=== PATIENT | female | born 1970 | race Caucasian/White ===

== ENCOUNTER 2017-06-06 17:57 | Inpatient (IN) ==
[2017-06-06] MEDS ORDERED: 0.9 % SODIUM CHLORIDE 1,000 ML IV ONE (18:17)
[2017-06-06] MEDS ORDERED: KETOROLAC 15 MG/ML VIAL IV ONE (18:26)
[2017-06-06] MEDS ORDERED: ONDANSETRON 4 MG/2 ML VIAL IV ONE (18:28)
--- NOTE | 2017-06-06 18:29 | Emergency Department Note ---
Abdominal Pain HPI - General Chief Complaint: Abdominal Pain Stated Complaint: right low abd pain, "ache all over" Time Seen by Provider: 06/06/17 18:01 Source: patient Mode of arrival: ambulatory Limitations: no limitations - History of Present Illness HPI Narrative: 46-year-old female presents with right-sided abdominal pain. She states earlier today she had some mid back pain and went to the chiropractor. She states that pain is a lot better. After she got out of the chiropractor she started having right-sided abdominal pain that was 8 out of 10. She has a history of kidney stones and has had a lithotripsy previously. She states she is also gassy and belches and feels better. She denies nausea or vomiting. 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 She denies any urinary frequency. She has a uterine fibroid that causes her trouble when she is on her cycle but she is not right now. She has had a cholecystectomy in the past. - Related Data Home Medications Medication Instructions Recorded Confirmed Multi Vit 1 tab PO DAILY 01/16/15 06/06/17 Allergies Allergy/AdvReac Type Severity Reaction Status Date / Time No Known Drug Allergies Allergy Verified 05/10/16 11:35 Review of Systems All systems ED: reviewed and negative except as stated. Abdominal Pain PMH - Past Medical History Medical history: Reports: kidney stones, other (Uterine fibroid) Surgical history ED: Reports: cholecystectomy Psychiatric history: Reports: no psych history [employer] history: Reports: uterine fibroids Family history: Reports: no significant family history - Social History Smoking status: Never smoker Physical Exam Limitations: no limitations General appearance: alert, other (Uncomfortable) Head: atraumatic Eye: Present: normal appearance. Absent: conjunctival injection Neck: Present: normal inspection, full ROM Chest: Present: normal inspection, symmetric chest wall rise Respiratory: Present: normal lung sounds bilaterally Cardiovascular: Present: tachycardia, normal heart sounds Abdominal: Present: soft, tenderness, normal bowel sounds. Absent: distention, rigidity, psoas sign, heel tap sign Abdominal tenderness: Present: RLQ, severe (Between the right lower and upper quadrant.). Absent: epigastrium, suprapubic Extremities: Present: normal inspection, full ROM Back: Present: CVA tenderness (R). Absent: CVA tenderness (L) Neurological: Present: alert, oriented X3 Psychiatric: Present: anxious Skin: Present: warm, dry, intact Course Vital Signs Temperature 98.7 F 06/06/17 17:59 Pulse Rate 109 H 06/06/17 17:59 Respiratory Rate 20 06/06/17 17:59 Blood Pressure 135/57 06/06/17 17:59 Pulse Oximetry (%) 99 06/06/17 17:59 Temperature 98.7 F 06/06/17 17:59 Pulse Rate 95 H 06/06/17 18:57 Respiratory Rate 20 06/06/17 17:59 Blood Pressure 126/71 06/06/17 18:57 Pulse Oximetry (%) 99 06/06/17 18:57 Abdominal Pain - MDM Narrative Medical decision making narrative: Appendicitis on CT scan. She also has an abnormality in her kidney that should be further evaluated by renal ultrasound outpatient. There is no evidence of obstructing kidney stones or hydronephrosis. Her appendix is large at 16 mm. Her white count is elevated at 18. She has been afebrile. Pain is controlled with 0.5 of Dilaudid. She will be admitted by Dr. Pastor and she will have surgery tomorrow. - Lab Data Lab results reviewed: Yes I reviewed the patient's lab results. Result diagrams: 06/06/17 18:20 06/06/17 18:20 Lab Results 06/06/17 06/06/17 06/06/17 Range/Units 18:20 18:20 18:20 WBC 18.5 H (4.5-11.0) K/mcL RBC 4.94 (4.00-5.20) M/mcL Hgb 14.3 (12.0-15.0) g/dL Hct 42.1 (36.0-48.0) % MCV 85.2 (80.0-100.0) fL MCH 28.9 (26.0-34.0) pg MCHC 33.9 (31.0-36.0) g/dL RDW 13.2 (11.5-14.5) % Plt Count 319 (140-440) K/mcL MPV 7.9 (7.4-10.4) fL Total Counted 100 Seg Neutrophils % 85 H (38-78) % Band Neutrophils % 1 (0-10) % Lymphocytes % 9 L (15-49) % Monocytes % (Manual) 5 (1-12) % Platelet Estimate Normal (NORMAL) RBC Morphology Normal (NORMAL) VBG Lactic Acid (0.5-2.2) mmol/L Sodium 136 (133-145) mmol/L Potassium 3.4 (3.3-5.1) mmol/L Chloride 99 (96-108) mmol/L Carbon Dioxide 23 (22-30) mmol/L Anion Gap 14.0 (8-16) BUN 10 (6-20) mg/dl Creatinine 0.6 (0.6-1.1) mg/dl GFR Calculation 111 Glucose 117 H (70-105) mg/dL Calcium 9.3 (8.6-10.4) mg/dl Total Bilirubin 0.6 (0.0-1.0) mg/dL AST 18 (0-37) U/l ALT 22 (0-40) U/l Alkaline Phosphatase 55 (39-117) U/L Total Protein 7.5 (5.9-8.4) gm/dL Albumin 4.2 (3.2-5.2) gm/dL Globulin 3.3 (2.2-3.7) gm/dL Albumin/Globulin Ratio 1.3 (1.0-2.3) Urine Color Straw Urine Appearance Hazy Urine pH 8.0 (5.0-9.0) Ur Specific [place] 1.011 (1.000-1.035) Urine Protein Neg (NEG) mg/dL Urine Glucose (UA) Negative (NEG) mg/dL Urine Ketones Neg (NEG) mg/dL Urine Occult Blood 0.03 A (<0.03) mg/dL Urine Nitrate Neg (NEG) Urine Bilirubin Neg (NEG) mg/dL Urine Urobilinogen Neg (NEG) mg/dL Ur Leukocyte Esterase Neg (NEG) /uL Urine RBC 1 (0-1) /hpf Urine WBC 2 (0-4) /hpf Ur Squamous Epith Cells < 1 (0-4) /hpf Urine Bacteria 0 (0) /hpf Urine Mucus Few (0) /hpf Ur Culture Indicated? No 06/06/17 Range/Units 18:20 WBC (4.5-11.0) K/mcL RBC (4.00-5.20) M/mcL Hgb (12.0-15.0) g/dL Hct (36.0-48.0) % MCV (80.0-100.0) fL MCH (26.0-34.0) pg MCHC (31.0-36.0) g/dL RDW (11.5-14.5) % Plt Count (140-440) K/mcL MPV (7.4-10.4) fL Total Counted Seg Neutrophils % (38-78) % Band Neutrophils % (0-10) % Lymphocytes % (15-49) % Monocytes % (Manual) (1-12) % Platelet Estimate (NORMAL) RBC Morphology (NORMAL) VBG Lactic Acid 1.4 (0.5-2.2) mmol/L Sodium (133-145) mmol/L Potassium (3.3-5.1) mmol/L Chloride (96-108) mmol/L Carbon Dioxide (22-30) mmol/L Anion Gap (8-16) BUN (6-20) mg/dl Creatinine (0.6-1.1) mg/dl GFR Calculation Glucose (70-105) mg/dL Calcium (8.6-10.4) mg/dl Total Bilirubin (0.0-1.0) mg/dL AST (0-37) U/l ALT (0-40) U/l Alkaline Phosphatase (39-117) U/L Total Protein (5.9-8.4) gm/dL Albumin (3.2-5.2) gm/dL Globulin (2.2-3.7) gm/dL Albumin/Globulin Ratio (1.0-2.3) Urine Color Urine Appearance Urine pH (5.0-9.0) Ur Specific [place] (1.000-1.035) Urine Protein (NEG) mg/dL Urine Glucose (UA) (NEG) mg/dL Urine Ketones (NEG) mg/dL Urine Occult Blood (<0.03) mg/dL Urine Nitrate (NEG) Urine Bilirubin (NEG) mg/dL Urine Urobilinogen (NEG) mg/dL Ur Leukocyte Esterase (NEG) /uL Urine RBC (0-1) /hpf Urine WBC (0-4) /hpf Ur Squamous Epith Cells (0-4) /hpf Urine Bacteria (0) /hpf Urine Mucus (0) /hpf Ur Culture Indicated? - Radiology Data Radiology results reviewed: Yes I reviewed the patient's radiology results. 1. Enlarged appendix with minimal periappendiceal inflammatory change. Appearance is consistent with a really, nonruptured appendicitis 2. Multiple nonobstructing renal calculi. Left renal mass is not excluded. Renal ultrasound or contrast-enhanced CT scan recommended. Disposition Pt seen by SAUS[facility] WRAPPER/PA only: Yes Clinical Impression: Acute appendicitis Disposition: Xfer As Outpt/Obs ([facility]) Condition: Fair Referrals: Noah Armas PA-C [Primary Care Provider] -
[2017-06-06] MEDS: HYDROmorphone 2 MG/ML SYRINGE IV PRN ×2 (18:50→21:45)
[2017-06-06 18:58] LABS: Mean Cell Volume 85.2 fL (80.0-100.0); Mean Corpuscular HGB Conc 33.9 g/dL (31.0-36.0); Mean Corpuscular Hemoglobin 28.9 pg (26.0-34.0); Platelet Count 319 K/mcL (140-440); RBC 4.94 M/mcL (4.00-5.20); Red Cell Distribution Width 13.2 % (11.5-14.5)
[2017-06-06 19:07] LABS: Appearance,Urine HAZY; Bacteria,Urine 0 /hpf (0); Bilirubin,Urine NEG (NEG); Color,Urine STRAW; Glucose,Urine (UA) NEGATIVE (NEG); Leukocyte Esterase,Urine NEG /uL (NEG); Mucus,Urine FEW /hpf (0); Nitrate,Urine NEG (NEG); Protein,Urine NEG (NEG); Specific Gravity,Urine 1.011 (1.000-1.035); Urine Blood 0.03 mg/dL (<0.03); Urine RBC 1 /hpf (0-1); Urine Squamous Epithelial Cell < 1 /hpf (0-4); Urine WBC 2 /hpf (0-4); Urobilinogen,Urine NEG (NEG)
[2017-06-06 19:15] LABS: ALT/SGPT 22 U/l (0-40); Albumin 4.2 gm/dL (3.2-5.2); Albumin/Globulin Ratio 1.3 (1.0-2.3); Alkaline Phosphatase 55 U/L (39-117); Blood Urea Nitrogen 10 mg/dl (6-20)
[2017-06-06 19:22] LABS: Band Neutrophils % 1 % (0-10); Lymphocytes % 9 % (15-49); Monocytes % (Manual) 5 % (1-12); Platelet Estimate NORMAL (NORMAL); RBC Morphology NORMAL (NORMAL); Segmented Neutrophils % 85 % (38-78)
--- NOTE | 2017-06-06 19:24 | Cat Scan Report ---
CLINICAL INFORMATION: Abdominal pain. Elevated white blood cell,. History of renal calculi. COMPARISON: None. TECHNIQUE: Axial images were obtained through the abdomen and pelvis. Sagittally and coronally reformatted images. FINDINGS: Appendix is enlarged. Appendix measures 16 mm in cross-sectional diameter. The appendix is short but cross-sectional diameter is abnormal and consistent with appendicitis. There is mild periappendiceal inflammatory change especially at the base. There is no appendicolith. No abscess. No free fluid. No evidence for ruptured appendix. Kidneys are abnormal. There are multiple small nonobstructing calculi. No hydronephrosis. No hydroureter. No bladder calculus. I cannot exclude an anterior mid pole left renal mass. Further evaluation is recommended. Renal ultrasound would be helpful or contrast enhanced CT scan. Lung bases are negative. No parenchymal infiltrate or mass. No pleural fluid. Liver is negative to limits of noncontrast enhanced examination. There are surgical clips in the gallbladder fossa. No dilated bile ducts. Spleen is negative. No splenomegaly. Pancreas is negative. Adrenal glands are negative. Lumbar spine, sacrum, pelvis are negative. Uterus is present. No adnexal mass. No free pelvic fluid. IMPRESSION: 1. Enlarged appendix with minimal periappendiceal inflammatory change. Appearance is consistent with a really, nonruptured appendicitis 2. Multiple nonobstructing renal calculi. Left renal mass is not excluded. Renal ultrasound or contrast-enhanced CT scan recommended. Interpreted and Authenticated by: Lucho Leyva 06/06/17
[2017-06-06] MEDS ORDERED: PIPERACILLIN SODIUM/TAZOBACTAM 3.375 GM in DEXTROSE 5% IN WATER 50 ML IV ONE (19:28)
--- NOTE | 2017-06-06 19:36 | Emergency Department Note ---
ED Note Addendum Note Addendum: I examined this patient and agree with the assessment and plan with the mid- level that she has appendicitis and the surgeon will be called.
[2017-06-06] MEDS ORDERED: ONDANSETRON 4 MG/2 ML VIAL IV PRN (19:51)
--- NOTE | 2017-06-06 20:15 | XRay Report ---
INDICATION: Appendicitis. Preoperative evaluation TECHNIQUE: AP chest x-ray,semiupright portable COMPARISON: None FINDINGS:Lungs are negative. No parenchymal infiltrate or mass. Heart size and vascularity are normal. No pulmonary edema. No pulmonary congestion. No pleural fluid. IMPRESSION: Negative AP chest x-ray Interpreted and Authenticated by: Lucho Leyva 06/06/17
[2017-06-06] MEDS: 0.9 % SODIUM CHLORIDE 1,000 ML IV SCH (21:00)
[2017-06-06] MEDS ORDERED: HYDROmorphone 2 MG/ML SYRINGE ONE (21:45)
[2017-06-06] MEDS: 0.9 % SODIUM CHLORIDE 10 ML SYRINGE IV SCH (21:46)
[2017-06-06] MEDS: FAMOTIDINE/PF 20 MG/2 ML VIAL IV SCH (22:44)
[2017-06-07] MEDS: PIPERACILLIN SODIUM/TAZOBACTAM 3.375 GM in DEXTROSE 5% IN WATER 50 ML IV SCH ×4 (01:00→17:45)
[2017-06-07 05:42] LABS: Mean Corpuscular HGB Conc 33.8 g/dL (31.0-36.0); Mean Corpuscular Hemoglobin 29.1 pg (26.0-34.0); Platelet Count 229 K/mcL (140-440); RBC 4.07 M/mcL (4.00-5.20); Red Cell Distribution Width 13.1 % (11.5-14.5)
[2017-06-07 05:57] LABS: ALT/SGPT 18 U/l (0-40); Albumin 3.4 gm/dL (3.2-5.2); Albumin/Globulin Ratio 1.5 (1.0-2.3); Alkaline Phosphatase 45 U/L (39-117); Bilirubin,Direct < 0.2 mg/dL (0.0-0.3); Blood Urea Nitrogen 10 mg/dl (6-20); Gamma Glutamyl Transpeptidase 16 U/L (5-36); Magnesium 1.8 mg/dL (1.6-2.5); Uric Acid 2.3 mg/dL (2.5-8.0)
[2017-06-07] MEDS: 0.9 % SODIUM CHLORIDE 1,000 ML IV SCH ×4 (05:59→22:31)
[2017-06-07] MEDS: 0.9 % SODIUM CHLORIDE 10 ML SYRINGE IV SCH ×3 (06:44→22:31)
[2017-06-07 07:09] LABS: Eosinophils % (Manual) 1 % (0-7); Lymphocytes % 7 % (15-49); Monocytes % (Manual) 11 % (1-12); Platelet Estimate NORMAL (NORMAL); RBC Morphology NORMAL (NORMAL); Segmented Neutrophils % 81 % (38-78)
--- NOTE | 2017-06-07 08:25 | General Surg History&Physical ---
History of Present Illness Patient information: Note initiated : 06/07/17 at 8:22 am Service Date, if different from initiated Date: [] Patient: Lashawn Greenwood a 46 y/o F admitted on for right low abd pain, "ache all over". Chief Complaint: [] HPI: Ms. Greenwood is a 46 year old F admitted with acute appendicitis. The patient had onset of mid back pain 10:30 AM on the day of admission. She was seen by chiropractor and had manipulation but the pain became worse and later localized to her right lower quadrant. She had nausea but no vomiting. The pain increased throughout the day and she felt like was seen in the emergency room where it was noted that she had right lower quadrant tenderness with guarding; an 18,000 white count; and CT scan showing a 16 mm dilated appendix with periappendiceal tissue edema compatible with appendicitis. She is admitted and will have surgery as soon as possible. Review of Systems - Constitutional no fever(s), no malaise, no weight loss - EENT Nose, mouth and throat: no abnormal hearing, no dysphagia, no hoarseness, no throat swelling - Cardiovascular no chest pain at rest, no claudication, no dyspnea on exertion, no palpatations - Respiratory no dyspnea, no wheezing - Gastrointestinal abdominal pain, bloating, cramping, nausea, no vomiting - Genitourinary Genitourinary: no dysuria, no nocturia, no urinary frequency, no urinary hesitancy - Musculoskeletal back pain, no arthralgias, no joint swelling, no stiffness - Integumentary no bleeding lesions, no new lesions, no pruritus, no rash - Neurological no abnormal gait, no confusion, no dizziness, no paresthesias, no weakness - Psychiatric no anxiety, no confusion, no depression - Endocrine no fatigue, no heat intolerance, no palpitations - Hematologic/Lymphatic no easy bleeding, no easy bruising, no lymphadenopathy - Allergic/Immunologic no tongue swelling, no throat swelling, no uticaria, no wheezing, no lip swelling Past History Past medical history: No chronic medical conditions Past surgical history: LEEP Cholecystectomy Endometrial ablation Past family history: Carcinoma of the colon Diabetes mellitus in multiple members Hypertension in multiple members Coronary artery disease in multiple members Past social history: Employed Neck no tobacco use Note alcohol use No drug use Medications and Allergies Home Medications Medication Instructions Recorded Confirmed Type Multi Vit 1 tab PO DAILY 01/16/15 06/06/17 History Allergies Allergy/AdvReac Type Severity Reaction Status Date / Time No Known Drug Allergies Allergy Verified 05/10/16 11:35 Exam Temp Pulse Resp BP Pulse Ox 97.5 F 80 16 119/73 98 06/07/17 06:20 06/07/17 04:00 06/07/17 06:20 06/07/17 06:20 06/07/17 06:20 - General physical appearance well developed, well nourished, no distress - Eyes PERRL, normal ocular movement - ENT normal pinna, normal nares, normal mucosa, no hearing loss, no congestion - Head Head exam IM: Present: atraumatic, normal inspection, normocephalic - Neck no masses, no bruits, trachea midline, no lymphadectomy, no venous distension - Cardiovascular Cardiovascular exam IM: Present: normal rate and rhythm, RRR, +S1, +S2. Absent : gallop, JVD, systolic murmur - Respiratory normal expansion, normal respiratory effort, clear to percussion, clear to auscultation - Abdomen Abdomen: Present: soft, tender (Mild distention with tenderness and guarding in the right lower quadrant with positive rebound; good active bowel sounds), bowel sounds Hernia: Present: none - Rectum Rectum: Present: normal sphincter tone - Integumentary Present: no rash, no growths, no abnormal pigmentation - Neurologic Present: normal coordination, normal sensation - Musculoskeletal Present: normal gait, normal posture - Psychiatric Present: oriented to time, oriented to person, oriented to place, speech is normal, memory intact Assessment and Plan (1) Acute appendicitis Patient counseled for laparoscopic appendectomy and it will be done later today Status: Acute
[2017-06-07] MEDS: FAMOTIDINE/PF 20 MG/2 ML VIAL IV SCH ×2 (09:09→22:30)
[2017-06-07] MEDS: HYDROmorphone 2 MG/ML SYRINGE IV PRN ×9 (09:16→22:29)
[2017-06-07] MEDS ORDERED: GLYCOPYRROLATE 0.2 MG/ML VIAL IV ONE (10:20)
[2017-06-07] MEDS ORDERED: PROPOFOL 200 MG/20 ML VIAL IV ONE (10:20)
[2017-06-07] MEDS ORDERED: LIDOCAINE HCL/PF 100 MG/5 ML SYRINGE IV ONE (10:20)
[2017-06-07] MEDS ORDERED: NEOSTIGMINE 1 MG/ML VIAL IV ONE (10:20)
[2017-06-07] MEDS ORDERED: KETAMINE 100 MG/ML ML IV ONE (10:20)
[2017-06-07] MEDS ORDERED: ONDANSETRON 4 MG/2 ML VIAL IV ONE (10:20)
[2017-06-07] MEDS ORDERED: ROCURONIUM 10 MG/ML ML IV ONE (10:20)
[2017-06-07] MEDS ORDERED: MIDAZOLAM 2 MG/2 ML VIAL IV ONE (10:20)
[2017-06-07] MEDS ORDERED: fentaNYL 100 MCG/2 ML VIAL IV ONE (10:20)
[2017-06-07] MEDS ORDERED: ONDANSETRON 4 MG/2 ML VIAL IV PRN ×3 (11:19→16:08)
[2017-06-07] MEDS ORDERED: MEPERIDINE 50 MG/ML SYRINGE IM PRN (11:19)
[2017-06-07] MEDS ORDERED: PROMETHAZINE 25 MG/ML VIAL IV PRN ×2 (11:19→16:10)
[2017-06-07] MEDS ORDERED: METOPROLOL TARTRATE 5 MG/5 ML VIAL IV PRN (11:19)
[2017-06-07] MEDS ORDERED: PROMETHAZINE 25 MG/ML VIAL IM PRN (11:19)
[2017-06-07] MEDS ORDERED: BENZOCAINE/MENTHOL 1 LOZENGE PO PRN (11:19)
[2017-06-07] MEDS ORDERED: IPRATROPIUM/ALBUTEROL 3 ML AMPUL.NEB NEB PRN (11:19)
[2017-06-07] MEDS ORDERED: LACTATED RINGERS 1,000 ML IV SCH (11:30)
--- NOTE | 2017-06-07 11:43 | Brief Operative Note ---
Date of procedure: 06/07/17 Pre-op diagnosis: ACUTE APPENDICITIS Post-op diagnosis: other (CECAL MASS WITH APPENDICEAL INFLAMMATION) Procedure: PARTIAL CECECTOMY WITH APPENDECTOMY Grafts/Implants: No (DEIRDRE X1) Anesthesia: GETA Findings: LARGE FIRM SWELLING OF DISTAL CECUM WITH APPENDICEAL INFLAMMATION Complications: none Surgeon: Sudhakar Pastor Estimated blood loss (cc): 25 Specimens Removed/Pathology: other (APPENDIX WITH DISTAL CECUM) Condition: stable Disposition: PACU
[2017-06-07] MEDS: MEPERIDINE 25 MG/ML SYRINGE IV PRN ×2 (12:10→12:15)
[2017-06-07] MEDS: fentaNYL 100 MCG/2 ML VIAL IV PRN ×2 (12:13→12:30)
--- NOTE | 2017-06-07 14:46 | Operative Note ---
DATE OF OPERATION: 06/07/2017 PREOPERATIVE DIAGNOSIS: Acute appendicitis. POSTOPERATIVE DIAGNOSIS: Cecal mass with appendiceal inflammation. PROCEDURE: Partial cecectomy with appendectomy. SURGEON: Sudhakar Pastor M.D. FINDINGS: A large firm swelling of distal cecum with appendiceal inflammation. DESCRIPTION: Under general anesthesia, the patient's abdomen was prepped and draped in a sterile field. Supraumbilical midline incision was made. Veress needle was inserted uneventfully. Abdominal cavity was insufflated with 2.1 liters of CO2. A 12 mm port was placed. The laparoscope was placed. Under videoscopic guidance, a 5 mm port was placed in the suprapubic midline and a 12 mm port in the left lower quadrant. The patient was placed in deep Trendelenburg position and rotated to the left. At the base of the cecum, there was a very thickened and inflamed but foreshortened appendix which was more bulbously dilated. This was contiguous with a thickened mass-like structure at the base of the cecum. The cecum was mobilized along its lateral attachments until I could get good visualization circumferentially. It was decided that I could remove the cecal mass and appendix using the Endo MEMO stapler. It did not appear to be malignant, but if it was, it was decided that she could have a followup operation if needed. The mesoappendix was transected with the Endo MEMO stapler. The cecum posterior wall was dissected until I could get full view of the cecum and the junction with the terminal ileum. Staying a few centimeters below the ileocecal valve, the cecum was transected at an angle which progressed progressively cephalad. Four fires of the Endo MEMO stapler was carried out. The appendix and the mass were then placed in an EndoCatch device and were retrieved through the left lower quadrant port site. Irrigation was carried out. Inspection in the pelvis revealed an enlarged uterus with multiple nodular fibroids and another large mass off the side of the uterus on the left side. This mass appeared to be contiguous with the lateral wall of the uterus, but it also extended through the broad ligament and pressed against the ovary. It did not appear to be ovarian in origin. Multiple pictures were taken. Copious irrigation was carried out. A 10-flat Wade drain was placed at the base of the cecum and brought out through the suprapubic midline port site. Inspection did not reveal any other pathology. CO2 was allowed to escape from the abdomen, and the ports were removed. The fascia at the left lower quadrant port site was closed with multiple [id number] sutures of 0 Monocryl. The supraumbilical midline incision was closed with interrupted 0 Vicryl. Skin incisions were closed with opal. The drain was secured with 2-0 nylon. Dressings were placed. The patient tolerated the procedure well. She was awakened from anesthesia, transferred to a bed and taken to the postanesthetic care unit in stable, satisfactory condition. LCS:misty Job ID: [id number] Doc ID: [id number] Sudhakar Pastor M.D.
[2017-06-07 16:31] LABS: ALT/SGPT 20 U/l (0-40); Albumin 3.5 gm/dL (3.2-5.2); Albumin/Globulin Ratio 1.4 (1.0-2.3); Alkaline Phosphatase 45 U/L (39-117); Bilirubin,Direct < 0.2 mg/dL (0.0-0.3); Blood Urea Nitrogen 7 mg/dl (6-20); Gamma Glutamyl Transpeptidase 15 U/L (5-36); Magnesium 1.6 mg/dL (1.6-2.5); Uric Acid 1.9 mg/dL (2.5-8.0)
[2017-06-07] MEDS ORDERED: POTASSIUM PHOSPHATE 40 MEQ in DEXTROSE 5% IN WATER 500 ML IV ONE (21:00)
[2017-06-07] MEDS ORDERED: POTASSIUM PHOSPHATE 22 MEQ/5 ML VIAL IV ONE (22:18)
[2017-06-08] MEDS: HYDROmorphone 2 MG/ML SYRINGE IV PRN ×3 (01:41→15:56)
[2017-06-08] MEDS: PIPERACILLIN SODIUM/TAZOBACTAM 3.375 GM in DEXTROSE 5% IN WATER 50 ML IV SCH ×5 (02:37→17:52)
[2017-06-08] MEDS ORDERED: POTASSIUM PHOSPHATE 40 MEQ in DEXTROSE 5% IN WATER 500 ML IV ONE (03:00)
[2017-06-08] MEDS ORDERED: POTASSIUM PHOSPHATE 22 MEQ/5 ML VIAL IV ONE (03:31)
[2017-06-08] MEDS: 0.9 % SODIUM CHLORIDE 1,000 ML IV SCH ×3 (05:38→15:29)
[2017-06-08] MEDS: 0.9 % SODIUM CHLORIDE 10 ML SYRINGE IV SCH ×3 (06:00→20:49)
[2017-06-08 07:13] LABS: Band Neutrophils % 3 % (0-10); Basophils % (Manual) 1 % (0-2); Lymphocytes % 19 % (15-49); Monocytes % (Manual) 10 % (1-12); Platelet Estimate NORMAL (NORMAL); RBC Morphology ABNORM (NORMAL); Segmented Neutrophils % 67 % (38-78)
[2017-06-08 07:14] LABS: Mean Cell Volume 84.9 fL (80.0-100.0); Mean Corpuscular Hemoglobin 28.9 pg (26.0-34.0); Platelet Count 226 K/mcL (140-440); Red Cell Distribution Width 13.6 % (11.5-14.5)
[2017-06-08] MEDS: FAMOTIDINE/PF 20 MG/2 ML VIAL IV SCH ×2 (08:51→20:49)
--- NOTE | 2017-06-08 13:57 | General Surgery Progress Note ---
Subjective Patient reports: feels better, pain is less, voiding w/o difficulty, no flatus, no bowel movement, nausea, afebrile Narrative: Note initiated : 06/08/17 at 1:55 pm Service Date, if different from initiated Date: [] Patient: Lashawn Greenwood 46 y/o F admitted on 06/07/17 for right low abd pain , "ache all over". Chief Complaint: [Patient is stable. She had some significant nausea and abdominal pain in the early postoperative period but that has resolved. She has some shoulder and back pain which was probably related to the pneumoperitoneum. That too has resolved. She is ambulating without difficulty and complains of hunger. The reason for delaying institution of oral feedings was explained to the patient and her . She is advised that she may be able to have clear liquids starting tomorrow.] Objective Temp Pulse Resp BP Pulse Ox 99 F 78 18 127/87 95 06/08/17 11:36 06/08/17 11:36 06/08/17 11:36 06/08/17 11:36 06/08/17 11:36 - Additional Data Intake & Output - Last 24 hours: Intake & Output 06/06/17 06/07/17 06/08/17 06/09/17 05:59 05:59 05:59 05:59 Intake Total 2049 2682 / 2682 Output Total 3150 / 3150 1490 / 1490 Balance 2049 -468 / -468 -1490 / -1490 Weight 171 lb 8 oz 173 lb 173 lb - General physical appearance well developed, well nourished, moderate distress - Respiratory normal expansion, normal respiratory effort, clear to percussion, clear to auscultation - Cardiovascular Cardiovascular exam: Present: normal rate and rhythm, RRR, +S1, +S2 - Abdomen soft, tender, bowel sounds (Abdomen is mildly distended with good active bowel sounds; her incision looks good; DEIRDRE drainage is serosanguineous) - Integumentary no rash, no growths, no abnormal pigmentation - Neurologic normal coordination, normal sensation - Musculoskeletal normal gait, normal posture - Psychiatric oriented to time, oriented to person, oriented to place, speech is normal, memory intact - Labs 06/08/17 05:05 06/07/17 13:46 Diabetes panel 06/07/17 Range/Units 13:46 Sodium 136 (133-145) mmol/L Potassium 3.3 (3.3-5.1) mmol/L Chloride 102 (96-108) mmol/L Carbon Dioxide 22 (22-30) mmol/L BUN 7 (6-20) mg/dl Creatinine 0.5 L (0.6-1.1) mg/dl Glucose 135 H (70-105) mg/dL Calcium 7.7 L (8.6-10.4) mg/dl AST 15 (0-37) U/l ALT 20 (0-40) U/l Alkaline Phosphatase 45 (39-117) U/L Total Protein 6.0 (5.9-8.4) gm/dL Albumin 3.5 (3.2-5.2) gm/dL Triglycerides 42 (<150) mg/dl Calcium panel 06/07/17 Range/Units 13:46 Calcium 7.7 L (8.6-10.4) mg/dl Phosphorus 2.0 L (2.7-4.5) mg/dL Albumin 3.5 (3.2-5.2) gm/dL Pituitary panel 06/07/17 Range/Units 13:46 Sodium 136 (133-145) mmol/L Potassium 3.3 (3.3-5.1) mmol/L Chloride 102 (96-108) mmol/L Carbon Dioxide 22 (22-30) mmol/L BUN 7 (6-20) mg/dl Creatinine 0.5 L (0.6-1.1) mg/dl Glucose 135 H (70-105) mg/dL Calcium 7.7 L (8.6-10.4) mg/dl Adrenal panel 06/07/17 Range/Units 13:46 Sodium 136 (133-145) mmol/L Potassium 3.3 (3.3-5.1) mmol/L Chloride 102 (96-108) mmol/L Carbon Dioxide 22 (22-30) mmol/L BUN 7 (6-20) mg/dl Creatinine 0.5 L (0.6-1.1) mg/dl Glucose 135 H (70-105) mg/dL Calcium 7.7 L (8.6-10.4) mg/dl Total Bilirubin 0.4 (0.0-1.0) mg/dL AST 15 (0-37) U/l ALT 20 (0-40) U/l Alkaline Phosphatase 45 (39-117) U/L Total Protein 6.0 (5.9-8.4) gm/dL Albumin 3.5 (3.2-5.2) gm/dL Assessment and Plan (1) Acute appendicitis Status: Acute Current Visit: Yes (2) Mass of cecum Status: Acute Assessment and plan: Patient is stable. Will probably advance diet tomorrow. Current Visit: Yes - Time Spent With Patient Total time spent is greater than 50% in coordination of care (as documented) at patient's floor/unit and/or counseling patient:
[2017-06-08] MEDS: POTASSIUM PHOSPHATE 40 MEQ in DEXTROSE 5% IN WATER 500 ML IV SCH ×2 (15:55→20:49)
[2017-06-08] MEDS: METOCLOPRAMIDE 10 MG/2 ML VIAL IV SCH (17:52)
[2017-06-09] MEDS: PIPERACILLIN SODIUM/TAZOBACTAM 3.375 GM in DEXTROSE 5% IN WATER 50 ML IV SCH ×4 (00:26→17:41)
[2017-06-09] MEDS: METOCLOPRAMIDE 10 MG/2 ML VIAL IV SCH ×4 (00:26→17:41)
[2017-06-09] MEDS: 0.9 % SODIUM CHLORIDE 1,000 ML IV SCH ×2 (01:21→03:48)
[2017-06-09] MEDS: 0.9 % SODIUM CHLORIDE 10 ML SYRINGE IV SCH ×3 (05:51→20:30)
[2017-06-09 05:56] LABS: ALT/SGPT 15 U/l (0-40); Albumin 3.4 gm/dL (3.2-5.2); Albumin/Globulin Ratio 1.2 (1.0-2.3); Alkaline Phosphatase 44 U/L (39-117); Bilirubin,Direct < 0.2 mg/dL (0.0-0.3); Blood Urea Nitrogen 2 mg/dl (6-20); Gamma Glutamyl Transpeptidase 17 U/L (5-36); Magnesium 1.8 mg/dL (1.6-2.5); Uric Acid 1.8 mg/dL (2.5-8.0)
[2017-06-09 06:49] LABS: Basophils # (Auto) 0 K/mcL (0.0-0.3); Basophils % (Auto) 0.3 % (0.0-2.0); Eosinophils # (Auto) 0.3 K/mcL (0.0-0.7); Eosinophils % (Auto) 3.5 % (0.0-7.0); Granulocytes % (Auto) 62.8 % (38.0-78.0); Lymphocytes # (Auto) 1.9 K/mcL (1.5-4.8); Lymphocytes % (Auto) 23.3 % (15.5-49.0); Mean Cell Volume 85.4 fL (80.0-100.0); Mean Corpuscular HGB Conc 34.1 g/dL (31.0-36.0); Mean Corpuscular Hemoglobin 29.1 pg (26.0-34.0); Monocytes # (Auto) 0.8 K/mcL (0.1-0.9); Monocytes % (Auto) 10.1 % (1.0-12.0); Platelet Count 265 K/mcL (140-440); RBC 4.12 M/mcL (4.00-5.20); Red Cell Distribution Width 13.3 % (11.5-14.5)
[2017-06-09] MEDS: FAMOTIDINE/PF 20 MG/2 ML VIAL IV SCH ×2 (08:56→20:29)
[2017-06-09] MEDS ORDERED: FLU VACC QS2017-18 36MOS UP/PF 60 MCG/0.5 ML SYRINGE IM ONE (10:00)
--- NOTE | 2017-06-09 13:48 | General Surgery Progress Note ---
Subjective Patient reports: feels better, pain is less, flatus, bowel movement, afebrile Narrative: Note initiated : 06/09/17 at 1:45 pm Service Date, if different from initiated Date: [] Patient: Lashawn Greenwood 46 y/o F admitted on 06/07/17 for right low abd pain , "ache all over". Chief Complaint: [Patient is doing well. She has had multiple bowel movements and has passed lots of flatus. Her abdominal discomfort is significantly improved. She complains of hunger. She denies shortness of breath or chest discomfort. DEIRDRE drainage is more serous than on yesterday.] Objective Temp Pulse Resp BP Pulse Ox 97.5 F 83 16 133/77 99 06/09/17 11:52 06/09/17 11:52 06/09/17 11:52 06/09/17 11:52 06/09/17 11:48 - Additional Data Intake & Output - Last 24 hours: Intake & Output 06/07/17 06/08/17 06/09/17 06/10/17 05:59 05:59 05:59 05:59 Intake Total 2049 3191.0909 / 3191.0909 1777.1818 / 1777.1818 50 / 50 Output Total 3150 / 3150 4750 / 4750 1909 Balance 2049 41.0909 / 41.0909 -2972.8182 / -2972.8182 -1860 / -1860 Weight 171 lb 8 oz 173 lb 172 lb 12.8 oz - General physical appearance well developed, well nourished, no distress - Eyes PERRL - ENT no congestion - Neck no venous distension - Respiratory normal expansion, normal respiratory effort, clear to auscultation - Cardiovascular Cardiovascular exam: Present: normal rate and rhythm, RRR, +S1, +S2. Absent: JVD - Abdomen soft, tender, bowel sounds (Abdomen is mildly distended with active bowel sounds ; port sites are unremarkable; DEIRDRE drain with serosanguineous drainage) - Integumentary no rash, no growths, no abnormal pigmentation - Neurologic normal coordination, normal sensation - Musculoskeletal normal gait, normal posture - Psychiatric oriented to time, oriented to person, oriented to place, speech is normal, memory intact - Labs 06/09/17 04:45 06/09/17 04:45 Diabetes panel 06/09/17 Range/Units 04:45 Sodium 139 (133-145) mmol/L Potassium 3.6 (3.3-5.1) mmol/L Chloride 102 (96-108) mmol/L Carbon Dioxide 25 (22-30) mmol/L BUN 2 L (6-20) mg/dl Creatinine 0.5 L (0.6-1.1) mg/dl Glucose 111 H (70-105) mg/dL Calcium 8.4 L (8.6-10.4) mg/dl AST 13 (0-37) U/l ALT 15 (0-40) U/l Alkaline Phosphatase 44 (39-117) U/L Total Protein 6.2 (5.9-8.4) gm/dL Albumin 3.4 (3.2-5.2) gm/dL Triglycerides 110 (<150) mg/dl Calcium panel 06/09/17 Range/Units 04:45 Calcium 8.4 L (8.6-10.4) mg/dl Phosphorus 3.0 (2.7-4.5) mg/dL Albumin 3.4 (3.2-5.2) gm/dL Pituitary panel 06/09/17 Range/Units 04:45 Sodium 139 (133-145) mmol/L Potassium 3.6 (3.3-5.1) mmol/L Chloride 102 (96-108) mmol/L Carbon Dioxide 25 (22-30) mmol/L BUN 2 L (6-20) mg/dl Creatinine 0.5 L (0.6-1.1) mg/dl Glucose 111 H (70-105) mg/dL Calcium 8.4 L (8.6-10.4) mg/dl Adrenal panel 06/09/17 Range/Units 04:45 Sodium 139 (133-145) mmol/L Potassium 3.6 (3.3-5.1) mmol/L Chloride 102 (96-108) mmol/L Carbon Dioxide 25 (22-30) mmol/L BUN 2 L (6-20) mg/dl Creatinine 0.5 L (0.6-1.1) mg/dl Glucose 111 H (70-105) mg/dL Calcium 8.4 L (8.6-10.4) mg/dl Total Bilirubin 0.5 (0.0-1.0) mg/dL AST 13 (0-37) U/l ALT 15 (0-40) U/l Alkaline Phosphatase 44 (39-117) U/L Total Protein 6.2 (5.9-8.4) gm/dL Albumin 3.4 (3.2-5.2) gm/dL Assessment and Plan (1) Acute appendicitis Status: Acute Current Visit: Yes (2) Mass of cecum Status: Acute Assessment and plan: Patient is stable. Start on GI soft diet Saline lock IV Probable discharge in the morning Current Visit: Yes - Time Spent With Patient Total time spent is greater than 50% in coordination of care (as documented) at patient's floor/unit and/or counseling patient:
[2017-06-10] MEDS: PIPERACILLIN SODIUM/TAZOBACTAM 3.375 GM in DEXTROSE 5% IN WATER 50 ML IV SCH ×3 (01:20→12:23)
[2017-06-10] MEDS: METOCLOPRAMIDE 10 MG/2 ML VIAL IV SCH ×3 (02:05→11:24)
[2017-06-10 05:34] LABS: Basophils # (Auto) 0 K/mcL (0.0-0.3); Basophils % (Auto) 0.3 % (0.0-2.0); Eosinophils # (Auto) 0.4 K/mcL (0.0-0.7); Eosinophils % (Auto) 4.6 % (0.0-7.0); Lymphocytes # (Auto) 1.9 K/mcL (1.5-4.8); Lymphocytes % (Auto) 23.6 % (15.5-49.0); Mean Cell Volume 85.7 fL (80.0-100.0); Mean Corpuscular Hemoglobin 29.1 pg (26.0-34.0); Monocytes # (Auto) 0.8 K/mcL (0.1-0.9); Monocytes % (Auto) 9.5 % (1.0-12.0); Platelet Count 336 K/mcL (140-440); RBC 4.43 M/mcL (4.00-5.20)
[2017-06-10 05:49] LABS: ALT/SGPT 18 U/l (0-40); Albumin 3.4 gm/dL (3.2-5.2); Albumin/Globulin Ratio 1.1 (1.0-2.3); Alkaline Phosphatase 47 U/L (39-117); Bilirubin,Direct < 0.2 mg/dL (0.0-0.3); Blood Urea Nitrogen 4 mg/dl (6-20); Gamma Glutamyl Transpeptidase 26 U/L (5-36); Magnesium 1.8 mg/dL (1.6-2.5); Uric Acid 2.9 mg/dL (2.5-8.0)
[2017-06-10] MEDS: 0.9 % SODIUM CHLORIDE 10 ML SYRINGE IV SCH ×2 (07:45→12:24)
[2017-06-10] MEDS: FAMOTIDINE/PF 20 MG/2 ML VIAL IV SCH (08:19)
--- NOTE | 2017-06-10 13:38 | Discharge Summary ---
Providers - Providers Patient information: Note initiated : 06/10/17 at 1:34 pm Service Date, if different from initiated Date: [] Patient: Lashawn Greenwood 46 y/o F admitted on 06/07/17 for Right Low Abd Pain , "Ache all Over"/Appendicitis. Chief Complaint: [] Date of admission: 06/06/17 Discharge date: 06/10/17 Attending physician: Sudhakar Pastor Hospitalization Hospital course: 46-year-old female who was admitted with signs and symptoms of appendicitis on the evening of 06 June. She had a tender right lower quadrant; elevated white blood count over 18,000; and CT evidence of an inflamed thickened indurated appendix with elmira-. Appendiceal tissue edema she had laparoscopy on 07 June and it showed a thickened edematous appendix but with a mass effect in the cecum above the appendiceal opening causing obstruction. She underwent partial C colectomy and appendectomy laparoscopically. She has done well in the postoperative period.. Her white blood count has returned to normal. She has been advanced to a soft diet without difficulty and she is having multiple bowel movements. Murphy-Thorne drain which is at the base of the residual cecum has serosanguineous fluid. She is stable and ready for discharge home Discharge diagnosis: Cecal mass Secondary discharge diagnosis: Appendicitis due to cecal mass Reason for admission: Right lower quadrant pain Procedures: Laparoscopy with partial cecectomy and appendectomy Pertinent studies/significant findings: CT of abdomen and pelvis with contrast Complications: None Exam Temp Pulse Resp BP Pulse Ox 98.5 F 60 20 124/77 97 06/10/17 11:24 06/10/17 07:49 06/10/17 11:24 06/10/17 11:24 06/10/17 11:24 - General physical appearance well developed, well nourished, no distress - Eyes PERRL, normal ocular movement - ENT normal pinna, normal nares, normal mucosa, no hearing loss, no congestion - Head Head exam IM: Present: atraumatic, normocephalic - Neck no masses, no bruits, trachea midline, no lymphadectomy, no venous distension - Cardiovascular Cardiovascular exam IM: Present: normal rate and rhythm - Respiratory normal expansion, normal respiratory effort, clear to percussion, clear to auscultation - Abdomen Abdomen: Present: soft, tender, bowel sounds, distended (Mild distention but with good active bowel sounds; tenderness in right lower quadrant; Murphy- Thorne drain with serous drainage) Hernia: Present: none - Integumentary Present: no rash, no growths, no abnormal pigmentation - Neurologic Present: normal coordination, normal sensation - Musculoskeletal Present: normal gait, normal posture - Psychiatric Present: oriented to time, oriented to person, oriented to place, speech is normal, memory intact Discharge Plan - Patient/Caregiver Discharge Instructions Activity: increase activity as tolerated, resume usual activities as tolerated Diet: Regular Diet Additional Instructions: May shower, no soaking in tub/pool until released by physician. Leave the dressing in place until seen in the physician's office. No heavy lifting. Empty DEIRDRE drainage at least once daily - Follow up Plan Follow up with: Noah Armas PA-C [Primary Care Provider] - Johanna Pastor [Student Nurse] - 06/20/17 8:15 am Disposition: Home, Self-Care Prognosis: Good Rehab Potential: Good I certify that the patient requires SNF services.: No Overall status at discharge: patient is not back to baseline Pending Studies Resuscitation Status Full Code Diet GI Soft/Transitional Start [place] Jun 09 1357 Famotidine (Pepcid) 20 mg IV Q12 SOCO Last Admin: 06/10/17 08:19 Dose: 20 mg Admin: 06/09/17 20:29 Dose: 20 mg Admin: 06/09/17 08:56 Dose: 20 mg Admin: 06/08/17 20:49 Dose: 20 mg Admin: 06/08/17 08:51 Dose: 20 mg Admin: 06/07/17 22:30 Dose: 20 mg Hydromorphone HCl (Dilaudid) 1 mg IV Q2HP PRN PRN Reason: PAIN LEVEL > 6 Last Admin: 06/08/17 15:56 Dose: 1 mg Admin: 06/08/17 04:20 Dose: 1 mg Admin: 06/08/17 01:41 Dose: 1 mg Admin: 06/07/17 22:29 Dose: 1 mg Admin: 06/07/17 19:25 Dose: 1 mg Admin: 06/07/17 15:53 Dose: 1 mg Admin: 06/07/17 13:09 Dose: 1 mg Piperacillin Sod/Tazobactam (Sod 3.375 gm/ Dextrose) 50 mls @ 100 mls/hr IV Q6H SOCO Last Infusion: 06/10/17 13:09 Dose: 0 mls/hr Admin: 06/10/17 12:23 Dose: 100 mls/hr Infusion: 06/10/17 05:50 Dose: 100 mls/hr Admin: 06/10/17 05:20 Dose: 100 mls/hr Infusion: 06/10/17 02:00 Dose: 0 mls/hr Admin: 06/10/17 01:20 Dose: 100 mls/hr Infusion: 06/09/17 18:11 Dose: 100 mls/hr Admin: 06/09/17 17:41 Dose: 100 mls/hr Infusion: 06/09/17 12:10 Dose: 100 mls/hr Admin: 06/09/17 11:40 Dose: 100 mls/hr Infusion: 06/09/17 06:20 Dose: 100 mls/hr Admin: 06/09/17 05:50 Dose: 100 mls/hr Infusion: 06/09/17 00:56 Dose: 0 mls/hr Admin: 06/09/17 00:26 Dose: 100 mls/hr Infusion: 06/08/17 18:22 Dose: 0 mls/hr Admin: 06/08/17 17:52 Dose: 100 mls/hr Infusion: 06/08/17 14:05 Dose: 0 mls/hr Admin: 06/08/17 13:35 Dose: 100 mls/hr Infusion: 06/08/17 09:29 Dose: 100 mls/hr Admin: 06/08/17 08:59 Dose: 100 mls/hr Infusion: 06/08/17 03:07 Dose: 0 mls/hr Admin: 06/08/17 02:37 Dose: 100 mls/hr Infusion: 06/07/17 18:15 Dose: 100 mls/hr Admin: 06/07/17 17:45 Dose: 100 mls/hr Metoclopramide HCl (Reglan) 10 mg IV Q6 SOCO Last Admin: 06/10/17 11:24 Dose: Not Given Admin: 06/10/17 07:45 Dose: Not Given Admin: 06/10/17 02:05 Dose: Not Given Admin: 06/09/17 17:41 Dose: Not Given Admin: 06/09/17 11:41 Dose: Not Given Admin: 06/09/17 05:51 Dose: 10 mg Admin: 06/09/17 00:26 Dose: 10 mg Admin: 06/08/17 17:52 Dose: 10 mg Promethazine HCl (Phenergan) 12.5 mg IV Q6HP PRN PRN Reason: Nausea And Vomiting Last Admin: 06/07/17 16:25 Dose: 12.5 mg Sodium Chloride (Saline Flush) 10 ml IV Q8 SOCO Last Admin: 06/10/17 12:24 Dose: 10 ml Admin: 06/10/17 07:45 Dose: 10 ml Admin: 06/09/17 20:30 Dose: 10 ml Admin: 06/09/17 14:48 Dose: Not Given Admin: 06/09/17 05:51 Dose: Not Given Admin: 06/08/17 20:49 Dose: Not Given Admin: 06/08/17 15:28 Dose: Not Given Admin: 06/08/17 06:00 Dose: Not Given Admin: 06/07/17 22:31 Dose: Not Given Admin: 06/07/17 13:59 Dose: Not Given Shift Summary 06/10/17 03:57 Shift Summary by Joelle Tan Pt A&O, up ad carol in room. IV to LAC SL. Has had multiple loose BMs. Lap sites to abd x2 with opal and Tegaderm and DEIRDRE drain site CDI. DEIRDRE had 10ml out, this is supposed to stay in place for a few weeks. Some redness noted to umbilical lap sites, probable from Tegaderm irritation. Denies pain. VSS on RA. Initialized on 06/10/17 03:57 - END OF NOTE
--- NOTE | 2017-06-10 14:38 | Discharge Summary ---
Providers - Providers Patient information: Note initiated : 06/10/17 at 1:32 pm Service Date, if different from initiated Date: [] Patient: Lashawn Greenwood 46 y/o F admitted on 06/07/17 for Right Low Abd Pain , "Ache all Over"/Appendicitis. Chief Complaint: [] Date of admission: 06/06/17 Discharge date: 06/10/17 Attending physician: Sudhakar Pastor Exam Temp Pulse Resp BP Pulse Ox 98.5 F 60 20 124/77 97 06/10/17 11:24 06/10/17 07:49 06/10/17 11:24 06/10/17 11:24 06/10/17 11:24 Discharge Plan - Patient/Caregiver Discharge Instructions Additional Instructions: May shower, no soaking in tub/pool until released by physician. Leave the dressing in place until seen in the physician's office. No heavy lifting. - Follow up Plan Follow up with: Johanna Pastor [Student Nurse] - 06/20/17 8:15 am Noah Armas PA-C [Primary Care Provider] - Prognosis: Fair Pending Studies Resuscitation Status Full Code Diet GI Soft/Transitional Start SatJun 09 1357 Famotidine (Pepcid) 20 mg IV Q12 SOCO Last Admin: 06/10/17 08:19 Dose: 20 mg Admin: 06/09/17 20:29 Dose: 20 mg Admin: 06/09/17 08:56 Dose: 20 mg Admin: 06/08/17 20:49 Dose: 20 mg Admin: 06/08/17 08:51 Dose: 20 mg Admin: 06/07/17 22:30 Dose: 20 mg Hydromorphone HCl (Dilaudid) 1 mg IV Q2HP PRN PRN Reason: PAIN LEVEL > 6 Last Admin: 06/08/17 15:56 Dose: 1 mg Admin: 06/08/17 04:20 Dose: 1 mg Admin: 06/08/17 01:41 Dose: 1 mg Admin: 06/07/17 22:29 Dose: 1 mg Admin: 06/07/17 19:25 Dose: 1 mg Admin: 06/07/17 15:53 Dose: 1 mg Admin: 06/07/17 13:09 Dose: 1 mg Piperacillin Sod/Tazobactam (Sod 3.375 gm/ Dextrose) 50 mls @ 100 mls/hr IV Q6H SOCO Last Infusion: 06/10/17 13:09 Dose: 0 mls/hr Admin: 06/10/17 12:23 Dose: 100 mls/hr Infusion: 06/10/17 05:50 Dose: 100 mls/hr Admin: 06/10/17 05:20 Dose: 100 mls/hr Infusion: 06/10/17 02:00 Dose: 0 mls/hr Admin: 06/10/17 01:20 Dose: 100 mls/hr Infusion: 06/09/17 18:11 Dose: 100 mls/hr Admin: 06/09/17 17:41 Dose: 100 mls/hr Infusion: 06/09/17 12:10 Dose: 100 mls/hr Admin: 06/09/17 11:40 Dose: 100 mls/hr Infusion: 06/09/17 06:20 Dose: 100 mls/hr Admin: 06/09/17 05:50 Dose: 100 mls/hr Infusion: 06/09/17 00:56 Dose: 0 mls/hr Admin: 06/09/17 00:26 Dose: 100 mls/hr Infusion: 06/08/17 18:22 Dose: 0 mls/hr Admin: 06/08/17 17:52 Dose: 100 mls/hr Infusion: 06/08/17 14:05 Dose: 0 mls/hr Admin: 06/08/17 13:35 Dose: 100 mls/hr Infusion: 06/08/17 09:29 Dose: 100 mls/hr Admin: 06/08/17 08:59 Dose: 100 mls/hr Infusion: 06/08/17 03:07 Dose: 0 mls/hr Admin: 06/08/17 02:37 Dose: 100 mls/hr Infusion: 06/07/17 18:15 Dose: 100 mls/hr Admin: 06/07/17 17:45 Dose: 100 mls/hr Metoclopramide HCl (Reglan) 10 mg IV Q6 SOCO Last Admin: 06/10/17 11:24 Dose: Not Given Admin: 06/10/17 07:45 Dose: Not Given Admin: 06/10/17 02:05 Dose: Not Given Admin: 06/09/17 17:41 Dose: Not Given Admin: 06/09/17 11:41 Dose: Not Given Admin: 06/09/17 05:51 Dose: 10 mg Admin: 06/09/17 00:26 Dose: 10 mg Admin: 06/08/17 17:52 Dose: 10 mg Promethazine HCl (Phenergan) 12.5 mg IV Q6HP PRN PRN Reason: Nausea And Vomiting Last Admin: 06/07/17 16:25 Dose: 12.5 mg Sodium Chloride (Saline Flush) 10 ml IV Q8 SOCO Last Admin: 06/10/17 12:24 Dose: 10 ml Admin: 06/10/17 07:45 Dose: 10 ml Admin: 06/09/17 20:30 Dose: 10 ml Admin: 06/09/17 14:48 Dose: Not Given Admin: 06/09/17 05:51 Dose: Not Given Admin: 06/08/17 20:49 Dose: Not Given Admin: 06/08/17 15:28 Dose: Not Given Admin: 06/08/17 06:00 Dose: Not Given Admin: 06/07/17 22:31 Dose: Not Given Admin: 06/07/17 13:59 Dose: Not Given Shift Summary 06/10/17 03:57 Shift Summary by Joelle Tan Pt A&O, up ad carol in room. IV to LAC SL. Has had multiple loose BMs. Lap sites to abd x2 with opal and Tegaderm and DEIRDRE drain site CDI. DEIRDRE had 10ml out, this is supposed to stay in place for a few weeks. Some redness noted to umbilical lap sites, probable from Tegaderm irritation. Denies pain. VSS on RA. Initialized on 06/10/17 03:57 - END OF NOTE
--- NOTE | 2017-06-12 12:30 | Surgical Pathology Report ---
HISTOLOGY SPECIMEN MICROSCOPIC DIAGNOSIS CECUM AND APPENDIX, PARTIAL CECECTOMY AND APPENDECTOMY: -- LOW GRADE APPENDICEAL MUCINOUS NEOPLASM, SEE COMMENT. -- MARGINS FREE OF INVOLVEMENT. 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 The neoplasm has a pushing border and lacks destructive invasion. Pools of mucin are present within the lamina propria and the wall of the cecum; the extra-appendiceal mucin lacks mucinous epithelial cells. Perforation is absent. The serosal surface and margins are not involved. Please see Summary Cancer Data for complete details. SUMMARY CANCER DATA Specimen: Appendix, partial cecum. Procedure: Appendectomy and partial cecectomy. Tumor Site: Diffusely involving appendix. 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 Microscopic Tumor Extension: Tumor invades submucosa. Margins: Uninvolved by neoplasm. Pathologic Stage: pT1 NX. PROCEDURAL IMPRESSION Acute appendicitis. GROSS DESCRIPTION Received in formalin labeled with the patient information, is a cooley-diallo appendix with a small amount of diallo attached cecum. The appendix is 5 cm in length by up to 1.5 cm in diameter. The cecum is open and is 1.5 cm in length and has a diameter of 3.1 cm. The mucosa is diallo. There is a slightly roughened area. It is approximately 1.5 cm. The cecal margin is inked black. Cut surfaces show pink-diallo tissue and a thickened wall. [employer] sections submitted in three cassettes: A1-A2 - account retention representative sections of appendix; A3 - cross section of roughened area of cecum leading to appendix including margins; A4-A7 - additional sections of cecum. (SCB:adj) Electronically Signed by: Ana Greene M.D.
== END 2017-06-10 15:05 | disposition home or self-care (01) | DRG 331 ==
LOC: ED 17:57 → MEDSUROUT 20:39 → MEDSUR 20:45
PROVIDERS: ADMIT Family Medicine Adult Medicine; ATTEND Family Medicine Adult Medicine
PROC: LAPAPPY (ICD-10-PCS; 2017-06-07 10:14)

== ENCOUNTER 2020-02-05 06:11 | Inpatient (IN) ==
--- NOTE | 2020-02-02 11:27 | XRay Report ---
INDICATION: preop TECHNIQUE: PA and lateral upright chest x-ray COMPARISON: Previous chest x-ray dated 06/06/2017 FINDINGS: Lungs: Lungs are negative. No focal pulmonary parenchymal infiltrate or mass Heart, vascular: No significant cardiomegaly. Pulmonary vascularity is normal. No pulmonary edema or pulmonary congestion Mediastinum, qasim: No mediastinal widening. No hilar mass Pleura:No pleural fluid. No pleural-based mass or calcification Thoracic spine, ribs: No thoracic compression fracture. Ribs are negative. No fracture. No lytic lesion IMPRESSION: 1. Negative PA and lateral chest x-ray 2. No significant interval change since 06/06/2017 Interpreted and Authenticated by: Lucho Leyva 02/02/20
[2020-02-02 13:10] LABS: Basophils # (Auto) 0.04 K/mcL (0.00-0.30); Basophils % (Auto) 0.6 % (0.0-2.0); Eosinophils # (Auto) 0.15 K/mcL (0.00-0.70); Eosinophils % (Auto) 2.2 % (0.0-7.0); Granulocytes % (Auto) 59.4 % (38.0-78.0); Hematocrit 39.7 % (34.1-44.9); Hemoglobin 13.2 g/dL (11.2-15.7); Lymphocytes # (Auto) 1.98 K/mcL (1.50-4.80); Lymphocytes % (Auto) 28.7 % (15.5-49.0); Mean Cell Volume 85.9 fL (80.0-100.0); Mean Corpuscular HGB Conc 33.2 g/dL (31.0-36.0); Mean Platelet Volume 9.8 fL (7.4-10.4); Monocytes # (Auto) 0.63 K/mcL (0.10-0.90); Monocytes % (Auto) 9.1 % (1.0-12.0); Platelet Count 316 K/mcL (140-440); RBC 4.62 M/mcL (3.59-5.38); Red Cell Distribution Width 12.8 % (11.5-14.5); WBC 6.9 K/mcL (4.50-11.00)
[2020-02-02 13:45] LABS: ALT/SGPT 17 U/l (0-40); AST/SGOT 16 U/l (0-37); Albumin 4.4 gm/dL (3.2-5.2); Albumin/Globulin Ratio 1.7 (1.0-2.3); Alkaline Phosphatase 49 U/L (39-117); Bilirubin,Total 0.2 mg/dL (0.0-1.0); Blood Urea Nitrogen 17 mg/dl (6-20); Carbon Dioxide 25 mmol/L (22-30); Chloride 100 mmol/L (96-108); Globulin 2.6 gm/dL (2.2-3.7); Glomerular Filtration Rate 109; Glucose 97 mg/dL (70-105)
[2020-02-02 14:02] LABS: HCG,Serum NEGATIVE <10 (<10 mIU/ml)
[2020-02-02 14:09] LABS: INR 0.9 (0.9-1.1); Prothrombin Time 12.7 sec (11.9-14.5)
[~2020-02-05 06:11] MED LIST: IPRATROPIUM/ALBUTEROL 3 ML AMPUL.NEB NEB PRN; SCOPOLAMINE 1 PATCH PATCH TOPICAL PRN; cefTRIAXone 2 GM in DEXTROSE 5% IN WATER 50 ML IV SCH
[2020-02-05] MEDS ORDERED: MAGNESIUM SULFATE 2 GM/50 ML BAG IV ONE ×2 (08:54→09:52)
[2020-02-05] MEDS ORDERED: ONDANSETRON 4 MG/2 ML VIAL IV ONE (09:52)
[2020-02-05] MEDS ORDERED: ROCURONIUM 10 MG/ML ML IV ONE (09:52)
[2020-02-05] MEDS ORDERED: MIDAZOLAM 5 MG/5 ML VIAL IV ONE (09:52)
[2020-02-05] MEDS ORDERED: HYDROmorphone 1 MG/ML SYRINGE IV ONE ×2 (09:52→13:54)
[2020-02-05] MEDS ORDERED: SUCCINYLCHOLINE 20 MG/ML ML IV ONE (09:52)
[2020-02-05] MEDS ORDERED: KETAMINE 100 MG/ML ML IV ONE (09:52)
[2020-02-05] MEDS ORDERED: PROPOFOL 200 MG/20 ML VIAL IV ONE (09:52)
[2020-02-05] MEDS ORDERED: DEXAMETHASONE 10 MG/ML VIAL IV ONE (09:52)
[2020-02-05] MEDS ORDERED: LIDOCAINE HCL/PF 100 MG/5 ML SYRINGE IV ONE (09:52)
[2020-02-05] MEDS ORDERED: fentaNYL 250 MCG/5 ML VIAL IV ONE (09:52)
[2020-02-05] MEDS ORDERED: GLYCOPYRROLATE 0.2 MG/ML VIAL IV ONE (09:52)
[2020-02-05] MEDS ORDERED: traZODone HCL 50 MG TABLET PO PRN ×2 (12:39→15:55)
[2020-02-05] MEDS ORDERED: ONDANSETRON 4 MG/2 ML VIAL IV PRN (12:39)
[2020-02-05] MEDS ORDERED: HYDROmorphone 1 MG/ML SYRINGE IV PRN (12:39)
[2020-02-05] MEDS ORDERED: KETOROLAC 30 MG/ML VIAL IV PRN ×2 (12:39→13:33)
--- NOTE | 2020-02-05 12:39 | Brief Operative Note ---
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
[2020-02-05] MEDS ORDERED: 0.9 % SODIUM CHLORIDE 1,000 ML IV SCH (12:45)
[2020-02-05] MEDS ORDERED: ROPIVACAINE HCL/PF 20 ML VIAL IJ ONE (12:54)
[2020-02-05] MEDS ORDERED: LACTATED RINGERS 250 ML IV PRN (13:05)
[2020-02-05] MEDS ORDERED: ACETAMINOPHEN 1,000 MG/100 ML BOTTLE IV ONE (13:05)
[2020-02-05] MEDS ORDERED: NALOXONE HCL 0.4 MG/ML VIAL IV PRN (13:05)
[2020-02-05] MEDS ORDERED: LABETALOL 5 MG/ML ML IV PRN (13:05)
[2020-02-05] MEDS ORDERED: METOPROLOL TARTRATE 5 MG/5 ML VIAL IV PRN (13:05)
[2020-02-05] MEDS ORDERED: IPRATROPIUM/ALBUTEROL 3 ML AMPUL.NEB NEB PRN (13:05)
[2020-02-05] MEDS ORDERED: METHOCARBAMOL 1,000 MG/10 ML VIAL IV PRN (13:05)
[2020-02-05] MEDS ORDERED: FLUMAZENIL 0.1 MG/ML ML IV PRN (13:05)
[2020-02-05] MEDS ORDERED: LACTATED RINGERS 1,000 ML IV SCH (13:15)
[2020-02-05] MEDS: fentaNYL 100 MCG/2 ML VIAL IV PRN ×4 (13:28→13:55)
[2020-02-05] MEDS ORDERED: 0.9 % SODIUM CHLORIDE 10 ML SYRINGE IV SCH (14:00)
[2020-02-05] MEDS ORDERED: HYDROmorphone 0.5 MG/0.5 ML SYRINGE ONE (14:09)
[2020-02-05] MEDS: 0.9 % SODIUM CHLORIDE 1,000 ML IV SCH (15:15)
[2020-02-05] MEDS ORDERED: cefTRIAXone 2 GM in DEXTROSE 5% IN WATER 50 ML IV SCH (15:55)
[2020-02-05] MEDS: HYDROmorphone 1 MG/ML SYRINGE IV PRN ×2 (18:48→21:18)
[2020-02-05] MEDS: ONDANSETRON 4 MG/2 ML VIAL IV PRN (18:48)
[2020-02-05] MEDS: KETOROLAC 30 MG/ML VIAL IV PRN (19:31)
[2020-02-05] MEDS ORDERED: DOCUSATE SODIUM 100 MG CAPSULE PO SCH (21:00)
[2020-02-05] MEDS ORDERED: SENNOSIDES 1 TABLET PO SCH (21:00)
[2020-02-05] MEDS: SENNOSIDES 1 TABLET PO SCH (21:19)
[2020-02-05] MEDS: DOCUSATE SODIUM 100 MG CAPSULE PO SCH (21:19)
[2020-02-05] MEDS: 0.9 % SODIUM CHLORIDE 10 ML SYRINGE IV SCH (21:21)
[2020-02-06] MEDS: HYDROmorphone 1 MG/ML SYRINGE IV PRN ×6 (00:03→23:30)
[2020-02-06] MEDS: 0.9 % SODIUM CHLORIDE 1,000 ML IV SCH ×3 (03:07→17:26)
[2020-02-06] MEDS: KETOROLAC 30 MG/ML VIAL IV PRN ×2 (05:01→16:55)
[2020-02-06] MEDS: 0.9 % SODIUM CHLORIDE 10 ML SYRINGE IV SCH ×3 (05:28→20:56)
[2020-02-06 06:35] LABS: Basophils # (Auto) 0.01 K/mcL (0.00-0.30); Basophils % (Auto) 0.1 % (0.0-2.0); Eosinophils # (Auto) 0.04 K/mcL (0.00-0.70); Eosinophils % (Auto) 0.3 % (0.0-7.0); Granulocytes % (Auto) 79.9 % (38.0-78.0); Hematocrit 36.8 % (34.1-44.9); Hemoglobin 12.6 g/dL (11.2-15.7); Lymphocytes # (Auto) 1.52 K/mcL (1.50-4.80); Lymphocytes % (Auto) 10.3 % (15.5-49.0); Mean Cell Volume 85.6 fL (80.0-100.0); Mean Corpuscular HGB Conc 34.2 g/dL (31.0-36.0); Mean Platelet Volume 10.6 fL (7.4-10.4); Monocytes % (Auto) 9.4 % (1.0-12.0); Platelet Count 235 K/mcL (140-440); Red Cell Distribution Width 12.9 % (11.5-14.5); WBC 14.8 K/mcL (4.50-11.00)
[2020-02-06 07:38] LABS: Bilirubin,Direct < 0.2 mg/dL (0.0-0.3); Chloride 101 mmol/L (96-108)
[2020-02-06 07:40] LABS: ALT/SGPT 19 U/l (0-40); AST/SGOT 22 U/l (0-37); Albumin 3.7 gm/dL (3.2-5.2); Albumin/Globulin Ratio 1.5 (1.0-2.3); Alkaline Phosphatase 44 U/L (39-117); Bilirubin,Total 0.4 mg/dL (0.0-1.0); Blood Urea Nitrogen 8 mg/dl (6-20); Calcium 7.7 mg/dl (8.6-10.4); Carbon Dioxide 17 mmol/L (22-30); Globulin 2.5 gm/dL (2.2-3.7); Glomerular Filtration Rate 115; Glucose 113 mg/dL (70-105); Lactate Dehydrogenase 236 U/L (94-250); Phosphorous 2.5 mg/dL (2.7-4.5); Triglycerides 57 mg/dl (<150); Uric Acid 2.9 mg/dL (2.5-8.0)
[2020-02-06] MEDS: ONDANSETRON 4 MG/2 ML VIAL IV PRN ×3 (08:34→23:30)
[2020-02-06] MEDS: ACETAMINOPHEN 1,000 MG/100 ML BOTTLE IV SCH ×3 (08:35→19:36)
[2020-02-06] MEDS: DOCUSATE SODIUM 100 MG CAPSULE PO SCH ×2 (10:38→20:56)
[2020-02-06] MEDS ORDERED: fentaNYL 100 MCG/2 ML VIAL IV PRN (12:59)
--- NOTE | 2020-02-06 13:04 | General Surgery Progress Note ---
SUBJECTIVE Subjective Patient information: Note initiated : 02/06/20 at 12:54 pm Service Date, if different from initiated Date: [] Patient: Lashawn Greenwood 49 y/o F admitted on 02/05/20 for Total Abdominal Hysterectomy with Salpingo. Chief Complaint: [] Principal diagnosis: postoperative hysterectomy Interval history: patient is doing well status post total abdominal hysterectomy. She had some nausea with emesis 1. She has passed flatus. White blood count 14.8, hemoglobin 12.6, hematocrit 36. Her pain is controlled with Dilaudid but she has nausea. Constitutional Vitals: Vital Signs Temp Pulse Resp BP Pulse Ox 99.2 F H 69 16 115/67 99 02/06/20 12:00 02/06/20 12:00 02/06/20 12:00 02/06/20 12:00 02/06/20 12:00 Period Temp Pulse Resp BP Sys/Estes Pulse Ox Last 24 Hr 97.5 F-99.2 F 69-103 14-37 106-161/64-90 91-100 Intake and Output 02/05/20 02/06/20 02/06/20 21:59 05:59 13:59 Intake Total 400 1400 100 Output Total 450 1150 Balance -50 250 100 Weight 174 lb 8 oz 174 lb 8 oz Patient Weight 02/07/20 05:59 Weight 174 lb 8 oz Intake & Output: Intake & Output 02/05/20 02/06/20 02/06/20 21:59 05:59 13:59 Intake Total 400 1400 100 Output Total 450 1150 Balance -50 250 100 Weight 174 lb 8 oz 174 lb 8 oz Intake: IV 1000 100 Sodium Chloride 0.9% 1,000 ml @ 1000 75 mls/hr IV .[id number] [facility] Rx#: [id number] Oral 400 IV - Manual Only 400 Output: Urine Catheter Amount 450 1150 Other: Urine Appearance Clear Clear Uretheral (Pruett) Clear Clear Urine Color Dark Yellow Bright Yellow Uretheral (Pruett) Pale Pale Urine Odor Normal Head Head exam: Present atraumatic, normal inspection and normocephalic Eye Eye exam: Present EOMI and normal appearance Pupils: Present normal accommodation and PERRL ENT ENT exam: Present mucous membranes moist, normal external ear exam and normal oropharynx Neck Neck exam: Present full ROM and normal inspection; Absent tenderness and thyromegaly Respiratory Respiratory exam: Present normal respiratory exam and CTAB; Absent rales, rhonchi and wheezes Cardiovascular Cardiovascular exam: Present normal rate and rhythm, RRR, +S1 and +S2; Absent gallop GI/Abdominal GI/Abdominal exam: Present normal bowel sounds, soft and tenderness (moderate incisional tenderness) Rectal Rectal exam: Present normal inspection Extremities Exam Extremities exam: Present full ROM, normal capillary refill, normal inspection and neurovascular intact; Absent calf tenderness and pedal edema Back Exam Back exam: Present full ROM; Absent tenderness Neurological Exam Neurological exam: Present alert, CN II-XII intact, normal gait, oriented X3 and reflexes normal Psychiatric Psychiatric exam: Present normal affect and normal mood Skin Skin exam: Absent cyanosis, pallor and rash A/P Assessment and plan (1) Dysfunctional uterine bleeding: Status: Acute (2) Intramural uterine fibroid: Assessment and plan: patient is doing well. Fentanyl 25 g daily 1-2 hours when necessary pain Encouraged patient to ambulate Status: Acute Time Spent With Patient Time: Total time spent is greater than 50% in coordination of care (as documented) at patient's floor/unit and/or counseling patient:
[2020-02-06] MEDS: SENNOSIDES 1 TABLET PO SCH (20:56)
[2020-02-07] MEDS: ACETAMINOPHEN 1,000 MG/100 ML BOTTLE IV SCH ×4 (02:26→19:45)
[2020-02-07] MEDS: 0.9 % SODIUM CHLORIDE 10 ML SYRINGE IV SCH ×4 (04:05→21:11)
[2020-02-07] MEDS: ONDANSETRON 4 MG/2 ML VIAL IV PRN ×3 (07:06→17:06)
[2020-02-07] MEDS: HYDROmorphone 1 MG/ML SYRINGE IV PRN ×4 (07:07→21:14)
[2020-02-07] MEDS: 0.9 % SODIUM CHLORIDE 1,000 ML IV SCH ×2 (07:38→07:53)
[2020-02-07] MEDS: DOCUSATE SODIUM 100 MG CAPSULE PO SCH ×2 (08:25→19:46)
--- NOTE | 2020-02-07 14:13 | General Surgery Progress Note ---
SUBJECTIVE Subjective Patient information: Note initiated : 02/07/20 at 2:09 pm Service Date, if different from initiated Date: [] Patient: Lashawn Greenwood 49 y/o F admitted on 02/05/20 for Total Abdominal Hysterectomy with Salpingo. Chief Complaint: [] Principal diagnosis: postoperative hysterectomy Interval history: patient continues to improve. She states that her pain is better controlled. She denies nausea and has had more flatus. She is tolerating liquid diet without difficulty. Constitutional Vitals: Vital Signs Temp Pulse Resp BP Pulse Ox 97.7 F 75 16 122/76 96 02/07/20 11:44 02/07/20 11:44 02/07/20 11:44 02/07/20 11:44 02/07/20 11:44 Period Temp Pulse Resp BP Sys/Estes Pulse Ox Last 24 Hr 97.7 F-99.0 F 75-90 16-20 121-133/68-76 95-98 Intake and Output 02/07/20 02/07/20 02/07/20 05:59 13:59 21:59 Intake Total 300 1820 Output Total 850 1400 Balance -550 420 Intake & Output: Intake & Output 02/07/20 02/07/20 02/07/20 05:59 13:59 21:59 Intake Total 300 1820 Output Total 850 1400 Balance -550 420 Intake: IV 100 1100 Sodium Chloride 0.9% 1,000 ml @ 1000 75 mls/hr IV .[id number] [facility] Rx#: [id number] Oral 200 720 Output: Urine Catheter Amount 850 1400 Other: Meal Lunch Percent of Meal Consumed 75% Feeding Ability Independent Urine Appearance Clear Uretheral (Pruett) Clear Urine Color Dark Yellow [place] Uretheral (Pruett) Bright Yellow Urine Odor Normal Head Head exam: Present atraumatic, normal inspection and normocephalic Eye Eye exam: Present EOMI and normal appearance Pupils: Present normal accommodation and PERRL ENT ENT exam: Present mucous membranes moist, normal external ear exam and normal oropharynx Neck Neck exam: Present full ROM and normal inspection; Absent tenderness and thyromegaly Respiratory Respiratory exam: Present normal respiratory exam and CTAB; Absent rales, rhonchi and wheezes Cardiovascular Cardiovascular exam: Present normal rate and rhythm, RRR, +S1 and +S2; Absent gallop GI/Abdominal GI/Abdominal exam: Present normal bowel sounds, soft and tenderness (moderate incisional tenderness) Extremities Exam Extremities exam: Present full ROM, normal capillary refill, normal inspection and neurovascular intact; Absent calf tenderness and pedal edema Back Exam Back exam: Present full ROM; Absent tenderness Neurological Exam Neurological exam: Present alert, CN II-XII intact, normal gait, oriented X3 and reflexes normal Psychiatric Psychiatric exam: Present normal affect and normal mood A/P Assessment and plan (1) Dysfunctional uterine bleeding: Status: Acute (2) H/O hysterectomy with oophorectomy: Status: Acute (3) Intramural uterine fibroid: Status: Acute Narrative A/P Narrative: CBC and CMP in the a.m. Advance to soft diet Discontinue Pruett catheter Saline lock IV Time Spent With Patient Time: Total time spent is greater than 50% in coordination of care (as documented) at patient's floor/unit and/or counseling patient:
[2020-02-07] MEDS: SENNOSIDES 1 TABLET PO SCH (19:46)
[2020-02-07] MEDS ORDERED: ONDANSETRON 4 MG/2 ML VIAL IV PRN (21:01)
[2020-02-07] MEDS ORDERED: ONDANSETRON 4 MG/2 ML VIAL ONE (21:07)
[2020-02-08] MEDS: ACETAMINOPHEN 1,000 MG/100 ML BOTTLE IV SCH ×3 (01:36→14:48)
[2020-02-08] MEDS: 0.9 % SODIUM CHLORIDE 10 ML SYRINGE IV SCH ×3 (01:36→14:49)
[2020-02-08 06:12] LABS: Basophils # (Auto) 0.03 K/mcL (0.00-0.30); Basophils % (Auto) 0.3 % (0.0-2.0); Eosinophils # (Auto) 0.29 K/mcL (0.00-0.70); Eosinophils % (Auto) 3.1 % (0.0-7.0); Granulocytes % (Auto) 70.3 % (38.0-78.0); Hematocrit 34.7 % (34.1-44.9); Hemoglobin 11.6 g/dL (11.2-15.7); Lymphocytes # (Auto) 1.67 K/mcL (1.50-4.80); Lymphocytes % (Auto) 17.9 % (15.5-49.0); Mean Corpuscular HGB Conc 33.4 g/dL (31.0-36.0); Mean Platelet Volume 9.2 fL (7.4-10.4); Monocytes # (Auto) 0.79 K/mcL (0.10-0.90); Monocytes % (Auto) 8.4 % (1.0-12.0); Platelet Count 271 K/mcL (140-440); RBC 4.08 M/mcL (3.59-5.38); Red Cell Distribution Width 12.6 % (11.5-14.5); WBC 9.4 K/mcL (4.50-11.00)
[2020-02-08 06:37] LABS: ALT/SGPT 14 U/l (0-40); AST/SGOT 13 U/l (0-37); Albumin 3.4 gm/dL (3.2-5.2); Albumin/Globulin Ratio 1.3 (1.0-2.3); Alkaline Phosphatase 48 U/L (39-117); Bilirubin,Total 0.4 mg/dL (0.0-1.0); Calcium 8.3 mg/dl (8.6-10.4); Chloride 100 mmol/L (96-108); Globulin 2.7 gm/dL (2.2-3.7); Glomerular Filtration Rate 115; Glucose 106 mg/dL (70-105)
[2020-02-08 06:38] LABS: Blood Urea Nitrogen 5 mg/dl (6-20); Carbon Dioxide 23 mmol/L (22-30)
[2020-02-08] MEDS: DOCUSATE SODIUM 100 MG CAPSULE PO SCH (08:41)
--- NOTE | 2020-02-08 13:45 | Discharge Plan ---
Discharge Plan Patient/Caregiver Discharge Instructions Activity: increase activity as tolerated and resume usual activities as tolerated Diet: Regular Diet Activity Restrictions/Additional Instructions: no lifting over 15-20 pounds No sexual intercourse for 6 weeks MiraLAX 17 g in 8 ounces of liquid twice daily as needed for constipation Prescriptions: New oxycodone-acetaminophen [Endocet] 10-325 mg Tablet 1 tab PO Q4H PRN (Reason: Pain) Qty: 60 RF: 0 Continued No Known Home Meds RF: 0 Follow Up Plan Follow up with: Sudhakar Pastor MD [Physician] - Patient Disposition: Home, Self-Care Assessment: patient is discharged in stable satisfactory condition Prognosis: Good Rehab Potential: Good I certify that the patient requires SNF services: No Overall status at discharge: patient is progressing back to baseline Discharge Orders: Discharge Order (Routine); Ordered 02/08/20 Ordered By: Sudhakar Pastor
--- NOTE | 2020-02-08 13:54 | Discharge Summary ---
Discharge Provider Provider Patient information: Note initiated : 02/08/20 at 1:45 pm Service Date, if different from initiated Date: [] Patient: Lashawn Greenwood 49 y/o F admitted on 02/05/20 for Total Abdominal Hysterectomy with Salpingo. Chief Complaint: [] Date of admission: 02/05/20 06:11 Discharge date: 02/08/20 Primary care physician: Noah Armas Admitting clinician: Sudhakar Pastor Attending physician on admission: Sudhakar Pastor Attending physician on discharge: Sudhakar Pastor Discharging clinician: Sudhakar Pastor COURSE Hospital Course Hospital course: 49-year-old female who is status post a BUD/BSO on February 07. She was found to have a large fibroma of the ovary on the left side. She also had multiple intramural and subserosal fibroids. Her right ovary also appeared to be fibrotic and nodular. Her surgery proceeded uneventfully and she had minimal blood loss. She has been monitored for the past 2-1/2 days and has done well. She is now tolerating soft diet without difficulty. She has not had any vaginal bleeding. Pathology results are not available as of this time. Patient is stable for discharge home.. Discharge diagnosis: multiple uterine fibroids Secondary discharge diagnosis: bilateral fibrotic ovaries Suspected endometrioma of subfascial plane on the left Reason for admission: severe dysfunctional uterine bleeding and pelvic pain Procedures: total abdominal hysterectomy with bilateral salpingo-oophorectomy Pertinent studies/significant findings: none Complications: none Time Spent with Patient Time attestation: Total time spent providing and/or coordinating discharge services: Physical Examination Vital Signs Vital signs: Temp Pulse Resp BP Pulse Ox 98.5 F 81 18 122/69 98 02/08/20 12:00 02/08/20 12:00 02/08/20 12:00 02/08/20 12:00 02/08/20 12:00 General physical appearance General physical exam: well developed, well nourished, no distress and moderate pain Eyes Eye exam: PERRL and normal ocular movement ENT ENT exam: normal pinna, normal nares and normal mucosa Head Head exam IM: Present atraumatic, normal inspection and normocephalic Neck Neck exam: no masses, no bruits, trachea midline, no lymphadenopathy and no venous distension Cardiovascular Cardiovascular exam IM: Present normal rate and rhythm, RRR, +S1 and +S2; Absent gallop and JVD Respiratory Respiratory exam: normal expansion, normal respiratory effort, clear to percussion and clear to auscultation Abdomen Abdomen: Present soft, non tender, tender (mild incisional tenderness), bowel sounds (good active bowel sounds), surgical scars (incision is healing without difficulty) and wound Integumentary Integumentary: Present no rash, no growths and no abnormal pigmentation Neurologic Neurologic: Present normal coordination and normal sensation Musculoskeletal Musculoskeletal: Present normal gait, normal posture and other Psychiatric Psychiatric: Present oriented to time, oriented to person, oriented to place, speech is normal, memory intact and other Discharge Plan Patient/Caregiver Discharge Instructions Activity: increase activity as tolerated and resume usual activities as tolerated Diet: Regular Diet Activity Restrictions/Additional Instructions: no lifting over 15-20 pounds No sexual intercourse for 6 weeks MiraLAX 17 g in 8 ounces of liquid twice daily as needed for constipation Prescriptions: New oxycodone-acetaminophen [Endocet] 10-325 mg Tablet 1 tab PO Q4H PRN (Reason: Pain) Qty: 60 RF: 0 Continued No Known Home Meds RF: 0 Follow Up Plan Follow up with: Sudhakar Pastor MD [Physician] - Patient Disposition: Home, Self-Care Assessment: patient is discharged in stable satisfactory condition Prognosis: Good Rehab Potential: Good I certify that the patient requires SNF services: No Overall status at discharge: patient is progressing back to baseline Discharge Orders: Discharge Order (Routine); Ordered 02/08/20 Ordered By: Sudhakar Pastor Pending Pending Pending: Resuscitation Status Full Code Diet GI Soft/Transitional Start SatFeb 06 1227 Docusate Sodium (Colace) 100 mg PO BID SOCO Last Admin: 02/08/20 08:41 Dose: 100 mg Documented by: Admin: 02/07/20 19:46 Dose: 100 mg Documented by: Admin: 02/07/20 08:25 Dose: 100 mg Documented by: Admin: 02/06/20 20:56 Dose: 100 mg Documented by: Admin: 02/06/20 10:38 Dose: Not Given Documented by: Admin: 02/05/20 21:19 Dose: Not Given Documented by: CALLUM Hydromorphone HCl (Dilaudid) 1 mg IV Q2HP PRN; Protocol PRN Reason: Per Pain Protocol Last Admin: 02/07/20 21:14 Dose: 1 mg Documented by: Admin: 02/07/20 17:06 Dose: 1 mg Documented by: Admin: 02/07/20 11:07 Dose: 1 mg Documented by: Admin: 02/07/20 07:07 Dose: 1 mg Documented by: Admin: 02/06/20 23:30 Dose: 1 mg Documented by: Admin: 02/06/20 17:21 Dose: 1 mg Documented by: Admin: 02/06/20 07:32 Dose: 1 mg Documented by: Admin: 02/06/20 05:02 Dose: 1 mg Documented by: Admin: 02/06/20 02:19 Dose: 1 mg Documented by: Admin: 02/06/20 00:03 Dose: 1 mg Documented by: Admin: 02/05/20 21:18 Dose: 1 mg Documented by: Admin: 02/05/20 18:48 Dose: 1 mg Documented by: CALLUM Acetaminophen (Ofirmev) 1,000 mg in 100 mls @ 200 mls/hr IV Q6H SOCO; Protocol Last Infusion: 02/08/20 09:12 Dose: 0 mls/hr Documented by: Admin: 02/08/20 08:42 Dose: 200 mls/hr Documented by: Infusion: 02/08/20 02:06 Dose: 200 mls/hr Documented by: Admin: 02/08/20 01:36 Dose: 200 mls/hr Documented by: Infusion: 02/07/20 20:55 Dose: 200 mls/hr Documented by: Admin: 02/07/20 20:25 Dose: 200 mls/hr Documented by: Infusion: 02/07/20 14:38 Dose: 0 mls/hr Documented by: Admin: 02/07/20 14:08 Dose: 200 mls/hr Documented by: Infusion: 02/07/20 08:23 Dose: 0 mls/hr Documented by: Admin: 02/07/20 07:53 Dose: 200 mls/hr Documented by: Infusion: 02/07/20 02:56 Dose: 0 mls/hr Documented by: Admin: 02/07/20 02:26 Dose: 200 mls/hr Documented by: Infusion: 02/06/20 20:06 Dose: 200 mls/hr Documented by: Admin: 02/06/20 19:36 Dose: 200 mls/hr Documented by: Infusion: 02/06/20 14:42 Dose: 0 mls/hr Documented by: Admin: 02/06/20 14:12 Dose: 200 mls/hr Documented by: Infusion: 02/06/20 09:05 Dose: 0 mls/hr Documented by: Admin: 02/06/20 08:35 Dose: 200 mls/hr Documented by: COCO Senna (Senokot) 2 tab PO HS [facility] Last Admin: 02/07/20 19:46 Dose: Not Given Documented by: Admin: 02/06/20 20:56 Dose: 2 tab Documented by: Admin: 02/05/20 21:19 Dose: Not Given Documented by: CALLUM Sodium Chloride (Saline Flush) 10 ml IV Q8 [facility] Last Admin: 02/08/20 04:08 Dose: Not Given Documented by: Admin: 02/08/20 01:36 Dose: 10 ml Documented by: Admin: 02/07/20 21:11 Dose: Not Given Documented by: Admin: 02/07/20 19:46 Dose: 10 ml Documented by: Admin: 02/07/20 13:47 Dose: Not Given Documented by: Admin: 02/07/20 04:05 Dose: Not Given Documented by: Admin: 02/06/20 20:56 Dose: Not Given Documented by: Admin: 02/06/20 13:26 Dose: Not Given Documented by: Admin: 02/06/20 05:28 Dose: Not Given Documented by: Admin: 02/05/20 21:21 Dose: Not Given Documented by: CALLUM Shift Summary 02/08/20 03:21 Shift Summary by Olga Lidia Huerta Pt is A&Ox4. VSS on RA. Up w/SBA. Incision to lower abdomen w/opal & Tegaderm shadow sanguineous drainage. Passing flatus & BM x2 yesterday. IV to left AC, SL. Tolerating GI soft diet. Pt received Dilaudid 1 mg x1 and scheduled Ofirmev for pain. Zofran was given at the same time as Dilaudid as pt reportedly had some nausea w/the Dilaudid previously. Will update with verbal report. Initialized on 02/08/20 03:21 - END OF NOTE
--- NOTE | 2020-02-15 14:57 | Operative Note ---
DATE OF OPERATION: 02/05/2020 PREOPERATIVE DIAGNOSIS: Uterine fibroids with dysfunctional uterine bleeding. POSTOPERATIVE DIAGNOSES: Uterine fibroids with fibrotic ovaries and endometrioma of the subfascial plane on the left side. PROCEDURE: 1. Total abdominal hysterectomy and bilateral salpingo-oophorectomy. 2. Excision of endometrioma of subfascial area left subfascial region. FINDINGS: 1. Multinodular uterus due to subserosal as well as intramural fibroids. 2. Bilateral fibrotic ovaries. 3. A large endometrioma of the fascial region beneath the left-sided rectus fascia overlying the muscle and invading the muscle. DESCRIPTION OF PROCEDURE: Under general anesthesia, patient's abdomen was prepped and draped in a sterile field. A Pfannenstiel incision was made and extended down to the fascia. There was thickening and induration of the rectus fascia on the left. The fascia was incised transversely for elevation. There was a definite infiltrative type endometrioma under the fascia on the left that appeared to be infiltrated in the muscle fibers. As much of this as possible, was removed. A moderate sized liquid blood collection was encountered. It was copiously irrigated. The rectus muscle was divided in the midline and the peritoneal cavity was entered. A large multinodular uterus with bilateral fibrotic ovaries was encountered. The left ovary appeared to be intermittently encased by the left tube. The round ligaments were doubly tied and divided. The infundibulopelvic ligament was skeletonized and the vascular pedicle was doubly clamped and controlled with a suture ligature of 0 Vicryl. This was done bilaterally. Bladder flap was elevated down to the base of the cervix. Using straight Darryl clamps, the uterine vessels were controlled with Darryl sutures of 0 Vicryl. The scope was continued down to the apex of the vagina. A curved Darryl clamp was used bilaterally to clamp the apex of the vagina and the cervix was removed. The vaginal apex was oversewn using a running 0 Vicryl. The aforementioned round ligaments were tied to the apex of the vagina bilaterally for additional support. Irrigation was carried out. Hemostasis was achieved. The pelvis was reperitonealized using running 2-0 Monocryl. Irrigation was carried out and there was no active bleeding. Sponge, needle, instrument and blade counts were verified as correct. The area of excision of the endometrioma was inspected and the greater portion of the endometrioma had been removed. The peritoneum was closed with 2-0 Vicryl. The muscle was reapproximated using 2-0 Vicryl. The fascia was closed with 0 Prolene. Subcutaneous tissue was irrigated and closed with 2-0 Vicryl. Skin was closed with opal. The patient tolerated the procedure well. A Tegaderm dressing was placed. She was awakened, transferred to a bed and taken to the postanesthetic care unit in stable, satisfactory condition. LCS:sultana Job ID: [id number] Doc ID: [id number] Sudhakar Pastor M.D.
--- NOTE | 2020-02-15 15:17 | Surgical Pathology Report ---
HISTOLOGY SPECIMEN MICROSCOPIC DIAGNOSIS SPECIMEN A - SOFT TISSUE, ENDOMETRIOMA, EXCISION: -- FIBROMUSCULAR AND ADIPOSE TISSUE WITH ENDOMETRIAL GLANDS AND STROMA WITH ASSOCIATED HEMOSIDERIN DEPOSITION AND LYMPHOHISTIOCYTIC CHRONIC INFLAMMATION COMPATIBLE WITH ENDOMETRIOSIS. -- NO MALIGNANCY IDENTIFIED. SPECIMEN B - UTERUS, BILATERAL FALLOPIAN TUBES AND OVARIES, HYSTERECTOMY WITH BILATERAL SALPINGO-OOPHORECTOMY: -- SUBSEROSAL, SUBMUCOSAL AND PARATUBAL LEIOMYOMATA. -- PHYSIOLOGIC OVARIES WITH INVOLVEMENT BY ENDOMETRIOSIS. -- CERVIX WITH NO DIAGNOSTIC ALTERATION. -- INACTIVE ENDOMETRIUM WITH TUBAL METAPLASIA. -- FULL CROSS SECTIONS OF LEFT AND RIGHT FALLOPIAN TUBE. -- NO MALIGNANCY IDENTIFIED. (EBD:adj) MICROSCOPIC DESCRIPTION Immunohistochemistry is performed on block A3. Cells of interest: Bingham myoid cells with granular type cytoplasm. Pancytokeratin: Negative. SMMHC: Highlights smooth muscle. HHF35: Highlights smooth and skeletal muscle. S100: Negative. Highlights adipocytes. CD68: Negative. Highlights histiocytes. Interpretation: Endometriosis involving fibromuscular and adipose tissue. No malignancy identified. Some of the tests reported here may not have been cleared or approved by the [place]. Food and Drug Administration (FDA). However, the FDA has determined that such clearance or approval is not necessary. Pursuant to the requirements of CLIA, this laboratory has established and verified the accuracy and precision of all tests, and additional information about these tests is available upon request. All technical controls are adequate. CLINICAL HISTORY Abnormal bleeding. PROCEDURAL IMPRESSION Intramural uterine fibroid, intramural leiomyoma; rule out endometriosis. GROSS DESCRIPTION Specimen A: Received in formalin designated endometrioma rule out endometriosis per requisition, is a purple-diallo piece of tissue. It is 3.4 x 2.2 x 0.5 cm. Cut surfaces are pink-diallo. Sectioned, entirely submitted in three cassettes. Specimen B: Received in formalin labeled uterus, cervix, bilateral fallopian tubes and ovaries, is a hysterectomy specimen consisting of cervix with attached body and attached adnexae. Also in the container are two purple-diallo fragments. They have an aggregate weight of 225 grams. The uterus is 10.1 x 4.3 x 5.1 cm. The serosa is purple-diallo. There are multiple possible subserosal nodules from less than 0.1 to 1.3 cm and additional possible serosal nodules from 0.2 to 0.6 cm. Near the posterior cul-de-sac there is a 2.2 cm firm cooley-diallo nodule. The left ovary and tube are attached to a 6 cm firm diallo nodule. The cervix is pink-diallo. The external cervical os is 0.2 cm in diameter. Located in the myometrium on both the anterior and posterior sides there are multiple firm diallo nodules from 0.2 to 1.5 cm. Possible endometrium is pink-diallo and less than 0.1 cm thick. Attached myometrium is striated and is up to 2.2 cm thick. Sectioning through the previously mentioned large firm, cooley-diallo nodules reveals cut surfaces of yellow-diallo possibly calcified areas. The right ovary is 3.4 x 1.5 x 1.6 cm. Cut surfaces are pink-diallo with orange corpus luteum. The associated fallopian tube consists of a purple tubal segment of tissue with a pinpoint lumen and fimbriated end. It is 4.6 cm in length including fimbriae and is up to 0.4 cm in diameter. Near the fimbriated end there is a 1.5 cm sac-like structure containing clear fluid. The left ovary is attached to the largest firm, cooley-diallo nodule. It is 2.9 x 1.8 x 2.2 cm. There are old pink-diallo follicles and orange corpus luteum and a 1 cm cavity containing red-brown tissue. The associated fallopian tube is 3.5 cm in length including fimbriae and is up to 0.6 cm in diameter. Near the fimbriated end there is a 0.9 cm cavity filled with clear fluid. Adjacent to the ovary there are two firm diallo nodules. They are 0.7 and 1.6 cm. The two additional fragments are 1.7 and 2.3 cm. Utilization Reviewer sections are submitted in eleven cassettes: B1 - anterior cervix; B2 - posterior cervix and posterior cul-de-sac shaving; B3 - full cross section anterior side and an additional segment showing possible endometrium; B4 - full cross section posterior side and an additional segment showing possible endometrium; B5 - desk representative sections of subserosal and serosal nodules; B6 - desk representative sections of firm cooley-diallo nodules within the myometrium; B7 - desk representative sections of largest firm, cooley-diallo nodule; B8 - desk representative sections of right ovary and associated fallopian tube; B9 - desk representative section of left ovary; B10 - desk representative section of left fallopian tube and firm diallo nodules adjacent to the ovary; B11 - desk representative sections of additional fragments of tissue. (SCB:adj) Electronically Signed by: Lolis Toribio M.D.
== END 2020-02-08 15:46 | disposition home or self-care (01) | DRG 743 ==
LOC: MEDSUR 06:11 → EDSTATUS 09:00 → MEDSUR 02-06 10:30
PROVIDERS: ADMIT Family Medicine Adult Medicine; ATTEND Family Medicine Adult Medicine